=== PATIENT | female | born 1950 | race Caucasian/White ===

== ENCOUNTER → 2016-08-27 | Outpatient (CLI) | payer OTHER ==
[~2016-08-27] MED LIST: ALKA-SELTZER D1 EACH PO; ALL DAY ALLERGY10 M2 PO; ASPIR 8181 MG PO; AZOR 10-40 MG1 EACH PO; COREG 3.125M3.125 MG PO; DITROPAN XL 5 MG5 MG PO; FISH OIL 1,0001 EACH PO; GLUCOPHAGE 500500 MG PO; HYDROCHLOROTHIA25 MG PO; IBUPROFEN800 MG PO; LIPITOR TAB 2020 MG PO; MULTIVITAMINS1 EAC1 PO; NEURONTIN 400400 MG PO; NORCO 5-325 TA1 EACH PO; OMEPRAZOLE20 MG PO; PERCOCET 10-321 EACH PO; PROMETHAZINE HC25 M1 PO; TUDORZA PRESS400 MCG INH; VENTOLIN/PROVE0.5 ML INH; ZYLOPRIM 300 M300 MG PO
== END ==
LOC: CT 08-26 09:30
DX: C82.03 Follicular lymphoma grade I, intra-abdominal lymph nodes (principal); Z01.89 Encounter for other specified special examinations
CPT/HCPCS: 71260; Q9962

== ENCOUNTER → 2020-08-02 | Outpatient (CLI) | payer OTHER ==
[~2020-08-02] MED LIST changes: +KEFLEX500 MG PO; +LASIX40 MG PO; +NORFLEX 100 MG100 MG PO; +PROTONIX40 MG PO; +Voltaren Gel 1% TOP; +ZOFRAN ODT 4 MG4 MG GT
== END ==
LOC: EXRD 06-19 13:00
DX: Z01.89 Encounter for other specified special examinations (principal); C82.03 Follicular lymphoma grade I, intra-abdominal lymph nodes; R11.2 Nausea with vomiting, unspecified; R21 Rash and other nonspecific skin eruption
CPT/HCPCS: 76775

== ENCOUNTER → 2021-08-21 | Outpatient (CLI) | payer OTHER | LOC: EXRD 13:00 | DX: N17.9 Acute kidney failure, unspecified (principal) | CPT/HCPCS: 76775 ==